=== PATIENT | male | born 1950 | race African-American/Black ===

== ENCOUNTER 2019-02-22 06:45 | Observation (INO) | payer MEDICARE, BC ==
[~2019-02-22] VITALS: Ht 175.3 cm; Wt 91.8 kg
[2019-02-22] VITALS (10 sets, daily range): BP systolic 129–169; BP diastolic 79–95
--- NOTE | ~2019-02-22 | H ---
[address] [address] HISTORY AND PHYSICAL Name: KEL ESCOBAR Room: [address] Ilia Martinez#: [id number] Admission: 02/22/19 Attend Phys: Urbano Giang MD, Discharge: 02/23/19 Date of : 52 Report #: [id number] THIS REPORT FOR: //name// Please refer to the History and Physical performed in the physician's office. By: [id number] Records Staff ERICK /LYNNETTE
[~2019-02-22 06:45] MED LIST: ASPIR 8181 MG PO; DIOVAN HCT 1601 EACH PO; EFFIENT10 MG PO; HYTRIN 5 M5 MG/1 CAP PO; NEURONTIN 300300 M1 PO; NITROGLYCERIN0.4 MG SUBLING; OMEPRAZOLE 20 M20 M1 PO; PLAVIX 75 MG TA75 M1 PO; ZOCOR40 MG PO
[2019-02-22] MEDS ORDERED: PLAVIX 75 MG TA75 M1 PO (08:13)
[2019-02-22] MEDS ORDERED: IMDUR 30 MG TAB30 M1 PO (08:13)
[2019-02-22] MEDS ORDERED: BENICAR20 MG PO (08:14)
[2019-02-22] MEDS ORDERED: HYDROCHLOROTH12.5 M1 PO (08:14)
[2019-02-22] MEDS ORDERED: FENOFIBRATE160 MG PO (08:14)
[2019-02-22] MEDS ORDERED: JARDIANCE10 MG PO (08:15)
[2019-02-22] MEDS ORDERED: LANTUS100 UNIT/M SUBQ (08:18)
[2019-02-22] MEDS ORDERED: NOVOLOG100 UNIT/1 SUBQ (08:19)
[2019-02-22 08:29] LABS: APTT 27.1 Seconds (25.0-31.3); PROTIME 10.3 Seconds (9.20-11.50)
[2019-02-22 08:39] LABS: HEMATOCRIT 41.9 % (42.0-52.0); HEMOGLOBIN 13.9 gm/dL (14.0-18.0); MCH 28.7 pg (26.0-34.0); MCHC 33.1 g/dL (28.0-37.0); MCV 86.6 fL (80.0-100.0); MPV 9.6 fl. (7.2-11.1); RBC 4.84 mil/uL (4.50-6.00); RDW-CV 14.7 % (10.5-14.5); WBC 4.3 thou/uL (4.0-11.0)
[2019-02-22 08:47] LABS: ANION GAP 10 mmol/L (7-16); BUN 26 mg/dL (7-18); CALCIUM 9.2 mg/dL (8.5-10.1); CHLORIDE 107 mmol/L (98-107); CO2 25 mmol/L (21-32); CREATININE 1.5 mg/dL (0.6-1.3); GLUCOSE 172 mg/dL (70-99); POTASSIUM 3.8 mmol/L (3.5-5.1); SODIUM 142 mmol/L (136-145)
[2019-02-22 08:55] LABS: ALKALINE PHOSPHATASE 59 U/L (46-116); CHOLESTEROL 161 mg/dL (<200); HDL CHOLESTEROL 39 mg/dL (>40); LDL CHOLESTEROL 60 mg/dL (<100); SGOT 15 U/L (15-37); SGPT 27 U/L (30-65); TC:HDL 4.1 Ratio (Not establshd); TOTAL BILIRUBIN 0.3 mg/dL (<0.1-1.0); TOTAL PROTEIN 7.7 g/dL (6.4-8.2); TRIGLYCERIDE 313 mg/dL (<150); VLDL 63 mg/dL (<40)
[2019-02-22 08:56] LABS: SERUM ASSESSMENT Clear
--- NOTE | 2019-02-22 17:04 | EKG ---
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: [facility] : 1950 Requested By: Urbano Giang Order Number: [id number] Diana MD: Jay Barnett Measurements Intervals [place] Rate: 63 P: 40 [place]: 212 QRS: 76 QRSD: 95 T: 66 QT: 437 QTc: 448 Interpretive Statements Sinus rhythm Possible left atrial enlargement Inferior Q waves noted Compared to ECG 05/02/2016 08:03:03 Prolonged QT interval no longer present Electronically Signed On 02-22-2019 17:04:42 CDT by Jay Barnett [email or web address] <ELECTRONICALLY SIGNED> By: Jay Barnett MD, [facility] 02/22/19 1704 0754 0754 Jay Barnett MD, [facility] /EPI
--- NOTE | 2019-02-22 17:08 | EKG ---
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[facility] : 1950 Requested By: Urbano Giang Order Number: [id number] Diana MD: Jay Barnett Measurements Intervals [place] Rate: 56 P: 37 [place]: 195 QRS: 85 QRSD: 100 T: 70 QT: 437 QTc: 422 Interpretive Statements Sinus rhythm Borderline right axis deviation Compared to ECG 05/02/2016 08:03:03 Myocardial infarct finding no longer present Prolonged QT interval no longer present Electronically Signed On 02-22-2019 17:08:40 CDT by Jay Barnett [email or web address] <ELECTRONICALLY SIGNED> By: Jay Barnett MD, [facility] 02/22/19 1708 1235 1235 Jay Barnett MD, [facility] /EPI
[2019-02-23] VITALS: BP 102/52
[2019-02-23 04:00] VITALS: BP 118/59
[2019-02-23 05:17] LABS: HEMATOCRIT 36.6 % (42.0-52.0); HEMOGLOBIN 12.3 gm/dL (14.0-18.0); MCHC 33.7 g/dL (28.0-37.0); MPV 9.4 fl. (7.2-11.1); RBC 4.25 mil/uL (4.50-6.00); RDW-CV 14.6 % (10.5-14.5); WBC 3.7 thou/uL (4.0-11.0)
--- NOTE | 2019-02-23 05:31 | NUR ---
VSS. SEE MAR SEE CHARTING. HOURLY ROUNDING FOR SAFETY.
[2019-02-23 05:41] LABS: ALBUMIN 3.2 g/dL (3.4-5.0); CALCIUM 8.7 mg/dL (8.5-10.1); CREATININE 1.4 mg/dL (0.6-1.3); POTASSIUM 3.9 mmol/L (3.5-5.1); TOTAL BILIRUBIN 0.4 mg/dL (<0.1-1.0); TOTAL PROTEIN 6.2 g/dL (6.4-8.2); TROPONIN-I LEVEL 0.46 ng/mL (<0.06)
[2019-02-23 07:48] VITALS: BP 137/79
[2019-02-23 08:15] VITALS: BP 136/81
[2019-02-23 11:17] VITALS: BP 115/72
--- NOTE | 2019-02-23 11:59 | NUR ---
ASSUMED CARE OF PT AROUND 0730 THIS AM. REFER TO ASSESSMENT. PT GIVEN DISCHARGE INSTRUCTIONS AT THIS TIME. VERBALIZES UNDERSTANDING. PT HAS FOLLOW UP APPOINTMENT WITH DR. COUGHLIN. NO OTHER CONCERNS AT THIS TIME. CLWR. WCTM.
--- NOTE | 2019-02-23 14:22 | CARD ---
[address] [address] CARDIAC CATH REPORT Name: KEL ESCOBAR BABAR Room: [address] Ilia Martinez#: [id number] Admission: 02/22/19 Attend Phys: Urbano Giang MD, Discharge: 02/23/19 Date of : 52 Report #: [id number] THIS REPORT FOR: //name// APPROVED REPORT Study performed: 02/22/2019 08:27:47 Patient Details Patient Status: Out-Patient Room #: The patient is a 69 year-old male Event Personnel Urbano Giang Wall Steamer, Joyce Garcia RN Electric Distribution Checker, Kb Boyce SEAM RUBBING MACHINE OPERATOR Scrub, Brittnee Suarez RTR Scrub, Lm Rico (R) Monitor Procedures Performed YONY Revasc Graft Single CIRC; left heart catheterization selective coronary arteriography aortocoronary saphenous vein bypass graft study, NGUYEN graft study Indication Unstable angina Risk Factors Obesity, Hypercholesterolemia, Hypertension, Diabetes Previous Procedures/Diagnoses Previous CABGPrevious PCI Admission/Lab Medications/Medications given during procedure Angiomax bolus and infusion Procedure Narrative The patient was brought electively to the Cardiac Catheterization Laboratory and was prepped and draped in a sterile manner. The right femoral was infiltrated with 2% Lidocaine subcutaneous anesthesia. A [place] 6 FR sheath was inserted into the right femoral artery. Coronary angiography was performed using coronary diagnostic catheters. The right coronary system was accessed and visualized with a Diagnostic AR 1 catheter. The left coronary system was accessed and visualized with a Diagnostic JL 4 catheter. Left ventricular/Aortic Valve gradient assessed via catheter pullback. Pre-demployment femoral angiogram was performed . Closure device was deployed with a 6 Fr Angioseal. The patient tolerated the [place] [address] CARDIAC CATH REPORT Name: ESCOBARKEL Room: [address]#: [id number] Admission: 02/22/19 Attend Phys: Urbano Giang MD, Discharge: 02/23/19 Date of : 52 Report #: [id number] were no complications associated with the procedure. There was no hematoma. Intraoperative Conscious Sedation Sedation start time: 9:32 Case end Time: 10:20 Fentanyl 25 mcg Versed 2 mg Fluoro Time: 13.7 minutes Dose: DAP 696899 cGycm2 1857 mGy Contrast Type and Amount: Visipaque 160 ml [place] Artery Percent Stenosis #1 widely patent NGUYEN graft to the LAD with 30% distal LAD narrowing #2 widely patent saphenous vein graft to the distal right coronary artery #3 patent saphenous vein graft to the distal circumflex with 90% mid graft in-stent restenosis Diagnostic Cath Left Main 40% distal narrowing LAD 100% mid vessel occlusion Circumflex 100% mid vessel occlusion Right Coronary Dominant vessel with 100% proximal occlusion Hemodynamics The aortic pressure is 137/69 mmHg with a mean of 95 mmHg. The left ventricular pressure is 153/1 mmHg with a mean of mmHg. The left ventricular end diastolic pressure is 12 mmHg. There was no gradient across the aortic valve upon pullback. PCI Technique Lesion Anticoagulation was achieved with Angiomax. Patient was preloaded with Angiomax IV 14 ml. Percutaneous coronary intervention was performed on the Distal 1/3 of SVG to Circ. The lesion stenosis prior to intervention was 90% with JOAN flow. A 6F JR 4.0 Guide Catheter was used to engage the ostium. A IG: BMW 190cm Interventional Guidewire was used to cross the lesion. BALLOON DILATION A Balloon catheter Trek RX 2.5 X 12 was inserted and inflated up to 10.00atm for 16seconds. Additional Inflation: 12.00[place] [address] CARDIAC CATH REPORT Name: LUZKEL BABAR Room: [address] Juan#: [id number] Admission: 02/22/19 Attend Phys: Urbano Giang MD, Discharge: 02/23/19 Date of : 52 Report #: [id number] 12seconds. STENT DEPLOYMENT A drug-eluting stent [place] RX Stent 2.88T15od was inserted and inflated up to 12.00atm for 16seconds. Additional Inflation: 14.00atm for 10seconds. Final angiography reveals 0 % stenosis with JOAN 3 flow. Conclusion #1 severe coronary artery disease characterized by the following: A 100% mid LAD occlusion B1 100% mid circumflex occlusion C1 100% proximal right coronary occlusion #2 graft study characterized by the following: A widely patent NGUYEN graft to the LAD B widely patent saphenous vein graft to the distal right coronary artery C patent saphenous vein graft to the distal circumflex with 90% mid graft in-stent restenosis to #3 normal left-sided hemodynamics study #4 successful percutaneous coronary intervention with deployment of drug-eluting stent at the site of 90% stenosis of the midportion of the saphenous vein graft to the circumflex coronary artery with 0% residual narrowing and JOAN-3 flow the distal vessel Recommendations Daily ASA with Plavix for at least one year Aggressive Medical Therapy Medications Administered Aspirin (any) [place] [address] CARDIAC CATH REPORT Name: KEL ESCOBAR BABAR Room: [address] Juan#: [id number] Admission: 02/22/19 Attend Phys: Urbano Giang MD, Discharge: 02/23/19 Date of : 52 Report #: [id number] Diagnostic Cath Approved by: Urbano Giang MD Date/Time: 02/23/2019 14:21:36 <ELECTRONICALLY SIGNED> By: Urbano Giang MD, [facility] 02/23/19 1422 1422 1422Joelijah Giang MD, FACC /INF
--- NOTE | 2019-02-23 18:34 | EKG ---
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: : 1950 Requested By: Urbano Giang Order Number: [id number] Reading MD: Jay Barnett Measurements Intervals [place] Rate: 63 P: 65 [place]: 181 QRS: 91 QRSD: 103 T: 92 QT: 430 QTc: 441 Interpretive Statements Sinus rhythm Left posterior fascicular block Borderline T wave abnormalities Compared to ECG 02/22/2019 12:35:31 Left posterior fascicular block now present T-wave abnormality now present Electronically Signed On 02-23-2019 18:34:27 CDT by Jay Barnett [email or web address] <ELECTRONICALLY SIGNED> By: Jay Barnett MD, FACC 02/23/19 1834 0836 0836 Jay Barnett MD, [facility] /EPI
--- NOTE | 2019-02-24 16:50 | D ---
[address] [address] DISCHARGE SUMMARY Name: KEL ESCOBAR BABAR Room: [address] Ilia Martinez#: [id number] Admission: 02/22/19 Attend Phys: Urbano Giang MD, Discharge: 02/23/19 Date of : 52 Report #: [id number] THIS REPORT FOR: //name// CC: Rodolfo Giang DATE OF SERVICE: 02/23/2019 FINAL DISCHARGE DIAGNOSES: 1. Unstable angina. 2. Coronary artery disease. 3. Status post remote coronary artery bypass grafting. 4. Status post percutaneous coronary intervention of the saphenous vein graft to the circumflex. 5. Type 2 diabetes. 6. Hyperlipidemia. 7. Hypertension. PROCEDURES: 02/22/2019 -- left heart catheterization, left ventriculography, selective coronary arteriography, aortocoronary saphenous vein bypass graft study, NGUYEN graft study, and percutaneous coronary intervention of the vein graft to the circumflex. The patient is a very pleasant 69-year-old male with diabetes, hypertension, and hypercholesterolemia. He is status post remote coronary artery bypass grafting and 3 years status post stenting of the vein graft to the circumflex. He presented with a pattern of dyspnea and chest discomfort typical of his prior angina following a course of clinical instability. In this context, I performed cardiac catheterization on 02/22/2019, which revealed a widely patent NGUYEN graft to the LAD, widely patent vein graft to the circumflex, a widely patent vein graft to the right coronary artery, and a patent vein graft to the circumflex with 90% mid graft in-stent restenosis. The [place] LAD, right, and circumflex were occluded. Left ventricular function was normal. Given this data, I elected to proceed with percutaneous coronary intervention, deploying one drug-eluting stent in the mid portion of the graft to the circumflex with 0% residual narrowing after deploying the Ernie drug-eluting stent in the mid portion of the graft to the circumflex with JOAN 3 flow to the distal vessel. The patient did well post-procedurally and ambulated in the hallway without difficulty. Troponin meryl inconsequentially to 0.46. Sodium was 143, potassium 3.9, BUN 23, creatinine 1.4. Hemoglobin 12.3, white blood cell count 3700 with 166,000 platelets. DISCHARGE MEDICATIONS: The patient was [place] [address] DISCHARGE SUMMARY Name: KEL ESCOBAR BABAR Room: [address]#: [id number] Admission: 02/22/19 Attend Phys: Urbano Giang MD, Discharge: 02/23/19 Date of : 52 Report #: [id number] medications: Aspirin 81 mg daily, clopidogrel 75 mg daily with a 600 mg hermann-procedural dose, fenofibrate 160 mg daily, hydrochlorothiazide 12.5 mg daily, NovoLog insulin t.i.d. and a sliding scale as used at home and Lantus in varying dose schedule as used at home, Imdur 30 mg daily, Jardiance 10 mg daily, olmesartan 20 mg daily, omeprazole 20 mg daily, simvastatin 80 mg daily, terazosin 2 mg daily, and p.r.n. sublingual nitroglycerin. The patient is scheduled to return to see me on 03/18/2019 at 0800. Thus, he is discharged to home in stable condition on the aforementioned medications with followup as iterated above. <ELECTRONICALLY SIGNED> By: Urbano Giang MD, FAC 02/24/19 1650 1301 1332Urbano Giang MD, FACC /nt
== END 2019-02-23 12:22 | disposition home or self-care (01) ==
LOC: M.CL 06:45 → M.TBA-CV 10:39 → M.2W 11:01
PROVIDERS: ADMIT Internal Medicine
DX: I25.110 Atherosclerotic heart disease of native coronary artery with unstable angina pectoris (principal); E11.9 Type 2 diabetes mellitus without complications; E78.5 Hyperlipidemia, unspecified; I10 Essential (primary) hypertension; Z79.82 Long term (current) use of aspirin; Z79.4 Long term (current) use of insulin; Z79.899 Other long term (current) drug therapy; Z95.1 Presence of aortocoronary bypass graft; Z95.5 Presence of coronary angioplasty implant and graft; Z87.891 Personal history of nicotine dependence

== ENCOUNTER 2020-11-13 09:07 | Observation (INO) | payer MEDICARE, BC ==
[~2020-11-13] VITALS: Ht 175.3 cm; Wt 93.0 kg
[2020-11-13] VITALS (17 sets, daily range): BP systolic 125–162; BP diastolic 69–101
[~2020-11-13 09:07] MED LIST changes: +BENICAR20 MG PO; +FENOFIBRATE160 MG PO; +HUMALOG100 UNIT/1 SUBQ; +HYDROCHLOROTH12.5 M1 PO; +HYTRIN 2MG CAPSU2 M1 PO; +IMDUR 30 MG TAB30 M1 PO; +JARDIANCE10 MG PO; +LANTUS100 UNIT/M SUBQ; +NOVOLOG100 UNIT/1 SUBQ; +TRULICITY1.5 MG/0.5 SUBQ
[2020-11-13 09:46] LABS: HEMATOCRIT 44.2 % (42.0-52.0); HEMOGLOBIN 14.7 gm/dL (14.0-18.0); MCH 28.5 pg (26.0-34.0); MCHC 33.4 g/dL (28.0-37.0); MCV 85.5 fL (80.0-100.0); RBC 5.17 mil/uL (4.50-6.00); RDW-CV 15.1 % (10.5-14.5); WBC 4.6 thou/uL (4.0-11.0)
[2020-11-13 09:54] LABS: CALCIUM 9.6 mg/dL (8.5-10.1); CREATININE 1.7 mg/dL (0.6-1.3); POTASSIUM 3.9 mmol/L (3.5-5.1)
[2020-11-13 09:59] LABS: ALBUMIN 4.1 g/dL (3.4-5.0); TOTAL BILIRUBIN 0.4 mg/dL (<0.1-1.0)
[2020-11-13 10:05] LABS: APTT 26.8 Seconds (25.0-31.3); PROTIME 10.8 Seconds (9.20-11.50)
--- NOTE | 2020-11-13 14:45 | EKG ---
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: [place] : 1950 Requested By: Urbano Giang Order Number: [id number] Reading MD: Urbano Giang Measurements Intervals [place] Rate: 87 P: 58 DC: 176 QRS: 122 QRSD: 80 T: 21 QT: 444 QTc: 535 Interpretive Statements Sinus rhythm Left posterior fascicular block Borderline T abnormalities, anterior leads Prolonged QT interval Compared to ECG 02/23/2019 08:36:16 Prolonged QT interval now present T-wave abnormality still present Electronically Signed On 11-13-2020 14:45:43 CDT by Urbano Giang [email or web address] <ELECTRONICALLY SIGNED> By: Urbano Giang MD, [facility] 11/13/20 1445 0933 0933 Urbano iGang MD, FAC /EPI
--- NOTE | 2020-11-13 14:46 | EKG ---
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: [place] : 1950 Requested By: Urbano Giang Order Number: [id number] Reading MD: Urbano Giang Measurements Intervals [place] Rate: 71 P: 47 [place]: 192 QRS: 76 QRSD: 94 T: 43 QT: 455 QTc: 495 Interpretive Statements Sinus rhythm Borderline T abnormalities, anterior leads Borderline prolonged QT interval Compared to ECG 11/13/2020 09:33:27 Left posterior fascicular block no longer present T-wave abnormality still present Electronically Signed On 11-13-2020 14:45:51 CDT by Urbano Giang [email or web address] <ELECTRONICALLY SIGNED> By: Urbano Giang MD, FAC 11/13/20 1445 1242 1242 Urbano Giang MD, FAC /EPI
--- NOTE | 2020-11-13 18:27 | CARD ---
[address] [address] CARDIAC CATH REPORT Name: KEL ESCOBAR Room: [address] M.R.#: [id number] Admission: 11/13/20 Attend Phys: Urbano Giang MD, Discharge: Date of : 52 Report #: [id number] THIS REPORT FOR: cc: Rodolfo Ames MD, David A. MD Holkins, John M. MD [facility] ~ APPROVED REPORT Study performed: 11/13/2020 09:36:06 Patient Details Patient Status: Out-Patient Room #: The patient is a 70 year-old male Event Personnel Urbano Giang Windows Deployment Technician, Jennie Nolen RN RN, Brenden Casiano RTR Scrub, Brittnee Suarez RTR Monitor Procedures Performed Art Access - R femoral artery YONY Place w/wo Plasty Single CIRC YONY Revasc Graft Single CIRC Left Heart Cath Coronaries, Bypass Grafts Hemostasis w/ Angioseal Indication Unstable angina , Positive stress test Risk Factors Obesity, Hypercholesterolemia, Hypertension, Diabetes Previous Procedures/Diagnoses Previous CABGPrevious PCI Admission/Lab Medications/Medications given during procedure Fentanyl IV 25 mcg, Midazolam (Versed) IV 2 mg, Lidocaine Subcut 14 ml, Oxygen Nasal cannula 2 l per min, 0.9% Sodium Chloride IV 75 ml per hr, 0.9% Sodium Chloride IV 150 ml per hr, Angiomax IV 14 ml, Angiomax Drip IV 32.55 ml per hr, Aspirin PO 162 mg, Plavix PO 600 mg Procedure Narrative The patient was brought electively to the Cardiac Catheterization Laboratory and was prepped and draped in a sterile manner. The right femoral was infiltrated with 2% Lidocaine subcutaneous anesthesia. A [place] 5fr sheath was inserted into [place] [address] CARDIAC CATH REPORT Name: KEL ESCOBAR JULIAN Room: [address] MThaoR.#: [id number] Admission: 11/13/20 Attend Phys: Urbano Giang MD, Discharge: Date of : 52 Report #: [id number] Coronary angiography was performed using coronary diagnostic catheters. The right coronary system was accessed and visualized with a Diagnostic JR4 6Fr catheter. The left coronary system was accessed and visualized with a Diagnostic JL4 6Fr catheter. The left ventricle was accessed and visualized with a Diagnostic [place] 6Fr catheter. Left ventricular/Aortic Valve gradient assessed via catheter pullback. Left ventriculogram was performed in SANTIAGO projection. Pre-demployment femoral angiogram was performed . Closure device was deployed with a 6 Fr Angioseal. The patient tolerated the procedure well and there were no complications associated with the procedure. There was no hematoma. Intraoperative Conscious Sedation Sedation start time: 1019 Case end Time: 1137 Fentanyl 25 mcg Versed 2 mg Fluoro Time: 19.0 minutes Dose: DAP 872314 cGycm2 3009 mGy Contrast Type and Amount: Visipaque 290 ml [place] Artery Percent Stenosis 1. Widely patent NGUYEN graft to the LAD with 30% distal LAD narrowing 2. Widely patent saphenous vein graft to the distal right coronary artery with 30% mid graft narrowing 3. Patent saphenous vein graft to 2 marginal branches of the circumflex with 40% mid graft narrowing and 90% distal stenosis within a previously deployed stent Diagnostic Cath Left Main 30% distal narrowing LAD 100% mid vessel occlusion Circumflex 40% proximal narrowing with 90% mid vessel stenosis and total occlusion of the marginal system Right Coronary 100% proximal occlusion Left Ventriculography The left ventricle is normal in size with normal contractility. The left ventricular ejection fraction is estimated to be 70%. Left ventricular wall motion abnormalities are not present. There [place] [address] CARDIAC CATH REPORT Name: KEL ESCOBAR BABAR Room: [address]#: [id number] Admission: 11/13/20 Attend Phys: Urbano Giang MD, Discharge: Date of : 52 Report #: [id number] Hemodynamics The aortic pressure is 142/72 mmHg with a mean of 74 mmHg. The left ventricular pressure is 136/-7 mmHg with a mean of mmHg. The left ventricular end diastolic pressure is 5 mmHg. There was no gradient across the aortic valve upon pullback. PCI Technique Lesion Anticoagulation was achieved with Angiomax. Percutaneous coronary intervention was performed on the Distal 1/3 of the saphenous vein graft to the circumflex. The lesion stenosis prior to intervention was 90% with JOAN 3 flow. A 6F JR 4.0 Guide Catheter was used to engage the Left SVG ostium. A IG: BMW 190cm Interventional Guidewire was used to cross the lesion. BALLOON DILATION A Balloon catheter [place] Trek RX 2.5 X 12 was inserted and inflated up to 14.00atm for 13seconds. Additional Inflation: 15.00atm for 9seconds. STENT DEPLOYMENT A drug-eluting stent Ernie RX Stent 2.5X12mm was inserted and inflated up to 12.00atm for 8seconds. Additional Inflation: 14.00atm for 8seconds. Final angiography reveals 0 % stenosis with JOAN 3 flow. PCI Technique Lesion 2 Percutaneous Coronary Intervention was performed on the mid circumflex artery segment. The lesion stenosis prior to intervention was 90% with JOAN 3 flow. A 6F XB LAD 3.5 Guide Catheter was used to engage the Left ostium. A IG: ProwaterFlex 180CM Interventional Guidewire was used to cross the lesion. Balloon Dilation A Balloon catheter Mini Trek RX 1.5 X 8 was inserted and inflated up to 17.00atm for 13seconds. A Balloon Catheter EA NC Trek 2.0 X 8mm was inserted and inflated up to 10.00 luanne for 11 seconds. Additional Inflation: 12.00 luanne for 8 seconds. Stent Deployment A drug-eluting stent Ernie RX Stent 2.0X8mm was inserted and inflated up to 8.00atm for 7seconds. Additional Inflation: 10.00atm for 9seconds. Final angiography reveals 10 % stenosis with JOAN [address] [address] CARDIAC CATH REPORT Name: KEL ESCOBAR Room: [address] Juan#: [id number] Admission: 11/13/20 Attend Phys: Urbano Giang MD, Discharge: Date of : 52 Report #: [id number] flow. Conclusion 1. Severe coronary artey disease characterized by the following: A 30% distal left main coronary B1 100% mid LAD occlusion C 40% proximal with 90% calcified mid circumflex stenosis with total occlusion of the marginal system D total proximal right coronary occlusion 2. Graft study characterized by the following: A widely patent NGUYEN graft the LAD with 30% distal LAD narrowing B widely patent saphenous vein graft to the distal right coronary artery with 30% mid graft narrowing C patent saphenous vein graft to 2 marginal branch of the circumflex with 40% mid graft narrowing and 90% distal graft in-stent restenosis 3. Hyperdynamic left ventricular systolic function, estimated ejection fraction is 70% 4. Successful PCI with deployment of a drug-eluting stent at the site of 90% distal graft stenosis in the SVG to the circumflex with 0% residual narrowing and JOAN-3 flow the distal vessel 5. Successful PCI with deployment of drug-eluting stent at the site of 90% calcified mid circumflex stenosis with 10% residual narrowing and JOAN-3 flow to the distal vessel Recommendations Aggressive Medical Therapy Medications Administered Aspirin (any) Clopidogrel [address] [address] CARDIAC CATH REPORT Name: KEL ESCOBAR Room: [facility] ADM Ilia M.R.#: [id number] Admission: 11/13/20 Attend Phys: Urbano Giang MD, Discharge: Date of : 52 Report #: [id number] Diagnostic Cath Approved by: Urbano Giang MD Date/Time: 11/13/2020 18:24:22 <ELECTRONICALLY SIGNED> By: Urbano Giang MD, FACC 11/13/201826 26 26Urbano Giang MD, FACC /INF
[2020-11-14 00:50] VITALS: BP 137/73
[2020-11-14 04:39] LABS: HEMATOCRIT 37.4 % (42.0-52.0); MCH 27.9 pg (26.0-34.0); MCHC 32.7 g/dL (28.0-37.0); MCV 85.2 fL (80.0-100.0); RBC 4.39 mil/uL (4.50-6.00); RDW-CV 15.1 % (10.5-14.5); WBC 3.2 thou/uL (4.0-11.0)
[2020-11-14 04:56] LABS: HEMOGLOBIN 12.2 gm/dL (14.0-18.0)
[2020-11-14 04:58] LABS: ALKALINE PHOSPHATASE 71 U/L (46-116); ANION GAP 11 mmol/L (7-16); BUN 26 mg/dL (7-18); CALCIUM 8.7 mg/dL (8.5-10.1); CHLORIDE 105 mmol/L (98-107); CHOLESTEROL 139 mg/dL (<200); CO2 22 mmol/L (21-32); CREATININE 1.5 mg/dL (0.6-1.3); GLUCOSE 301 mg/dL (70-99); HDL CHOLESTEROL 32 mg/dL (>40); POTASSIUM 3.7 mmol/L (3.5-5.1); SGOT 6 U/L (15-37); SGPT 19 U/L (30-65); SODIUM 138 mmol/L (136-145); TC:HDL 4.3 Ratio (Not establshd); TOTAL BILIRUBIN 0.2 mg/dL (<0.1-1.0); TOTAL PROTEIN 6.2 g/dL (6.4-8.2); TRIGLYCERIDE 449 mg/dL (<150); TROPONIN-I LEVEL 0.34 ng/mL (<0.06); VLDL 90 mg/dL (<40)
[2020-11-14 05:01] LABS: LDL CHOLESTEROL ND mg/dL (<100); SERUM ASSESSMENT Clear
[2020-11-14 05:49] VITALS: BP 139/76
--- NOTE | 2020-11-14 07:26 | NUR ---
ASSUMED CARE OF PT AFTER REPORT AT 1930. PT A&OX4. VSS. PHYSICAL ASSESSMENT COMPLETED AND CHARTED. PT ON RA. PT TRACING SR ON TELE. PT UPSTANDBY. PT COMPLAINED OF BACK PAIN-MED GIVEN PER MAR. POST CATH SITE TO RIGHT GROIN CLEAN, DRY & INTACT. CALL LIGHT WITHIN REACH.
[2020-11-14 08:00] VITALS: BP 125/64
[2020-11-14 11:06] VITALS: BP 148/78
--- NOTE | 2020-11-14 11:36 | D ---
[address] [address] DISCHARGE SUMMARY Name: KEL ESCOBAR Room: [address] M.R.#: [id number] Admission: 11/13/20 Attend Phys: Urbano Giang MD, Discharge: Date of : 52 Report #: [id number] THIS REPORT FOR: cc: Rodolfo Ames MD, David A. MD Holkins,Urbano Contreras MD [facility] ~ DATE OF SERVICE: 11/14/2020 DISPOSITION: Discharged to home. FINAL DISCHARGE DIAGNOSES: 1. Abnormal nuclear stress test. 2. Unstable angina. 3. Coronary artery disease. 4. Diabetes mellitus. 5. Hyperlipidemia. 6. Hypertension. 7. Exogenous obesity. PROCEDURES: 11/13/2020 -- left heart catheterization, left ventriculography, selective coronary arteriography, graft study, and percutaneous coronary intervention with stenting of the vein graft to the circumflex and ____ circumflex itself. HOSPITAL COURSE: The patient is a pleasant 70-year-old male with complex coronary artery disease, status post remote coronary artery bypass grafting and subsequent PCIs. Recently, he has noted that chest discomfort with moderate exertion and nuclear stress test demonstrated a large induced lateral defect. In this context, I performed cardiac catheterization on 11/13/2020. That study revealed 90% stenosis in the vein graft to the circumflex with a 90% stenosis in the mid circumflex with no graft to that portion of the circumflex system. There was a widely patent NGUYEN graft to the LAD and widely patent vein graft to the distal right coronary artery. The council LAD and right coronary artery are totally occluded. In this context, I performed a percutaneous coronary intervention, deploying one 2.5 x 12 mm [place] drug-eluting stent in the distal portion of the vein graft to the circumflex and one 2.0 x 8 mm [place] drug-eluting stent in the mid portion of the council circumflex with 0% residual narrowing at both sites following stent deployment and JOAN 3 flow of the distal vessels. The patient did well post-procedurally. Troponin meryl inconsequentially to 0.34. Additional lab revealed sodium 138, potassium 3.7; BUN 26, down from 28; creatinine 1.5, down from 1.7; glucose 301. White blood cell count 3200, hemoglobin 12.2, hematocrit 37.4, platelets 145,000. [place] [address] DISCHARGE SUMMARY Name: KEL ESCOBAR BABAR Room: [address]#: [id number] Admission: 11/13/20 Attend Phys: Urbano Giang MD, Discharge: Date of : 52 Report #: [id number] He ambulated in the hallways without difficulty and there was good hemostasis at the right femoral site of catheterization. DISCHARGE MEDICATIONS: He was discharged to home on the following medications: Aspirin 81 mg daily, simvastatin 80 mg at bedtime, omeprazole 20 mg daily, Imdur 30 mg daily, Plavix 75 mg daily, Benicar 20 mg daily, hydrochlorothiazide 12.5 mg daily, fenofibrate 160 mg daily, Jardiance 10 mg daily, Lantus insulin 40 units subcutaneously at bedtime, Trulicity varying dose schedule, Humalog insulin 15 units subcutaneously before meals, terazosin 2 mg at bedtime. I will plan to see the patient in followup in 4-6 weeks for his continuing care. Therefore, the patient is discharged to home in stable condition with followup on 12/14/2020. Medicines are as described above. He is stable at the time of discharge. <ELECTRONICALLY SIGNED> By: Urbano Giang MD, FACC 11/14/20 1136 [id number] Giang MD, FACC /nt
--- NOTE | 2020-11-14 11:42 | NUR ---
CM COMPLETED THE INITIAL ASSESSMENT. PT AAOX4. PT LIVES HOME WITH . PT IS INDEPENDENT W/CARES. PT DRIVES A VEHCILE. PT DENIES HX WITH HH OR SNF. PT HAS 0 DMES. THERE ARE NO ANTICIPATED DC NEEDS.
--- NOTE | 2020-11-14 14:20 | EKG ---
[place] [address] ELECTROCARDIOGRAM REPORT Name: LUZKEL Room: [address] M.R.#: [id number] Admission: 11/13/20 Attend Phys: Mary Guillory Discharge: 11/14/20 Date of : 52 Date of Service: 11/14/20 0649 Report #: [id number] THIS REPORT FOR: //name// [facility] Test Date: 2020-11-14 Test Time: 06:49:42 Pat Name: KEL ESCOBAR Department: Room: [facility] Gender: M [employer]: TEJAL : 1950 Requested By: Urbano Giang Order Number: [id number] Reading MD: Jay Barnett Measurements Intervals [place] Rate: 59 P: 47 MD: 186 QRS: 85 QRSD: 86 T: 108 QT: 420 QTc: 416 Interpretive Statements Sinus rhythm Borderline right axis deviation Inferior infarct, old, possible Low voltage, precordial leads Nonspecific T abnrm, anterolateral leads Compared to ECG 11/13/2020 12:42:15 Low QRS voltage now present T-wave abnormality no longer present Electronically Signed On 11-14-2020 14:20:41 CDT by Jay Barnett [email or web address] <ELECTRONICALLY SIGNED> By: Jay Barnett MD, [facility] 11/14/20 1420 0649 0649 Jay Barnett MD, [facility] /EPI
--- NOTE | 2020-11-15 13:06 | NUR ---
Cardiac Rehab. Copy of part of patient's chart faxed to [facility].
== END 2020-11-14 11:40 | disposition home or self-care (01) ==
LOC: M.CL 09:07 → M.TBA-CV 11:14 → M.2W 11:14
PROVIDERS: ADMIT Internal Medicine; ATTEND Internal Medicine
DX: I25.110 Atherosclerotic heart disease of native coronary artery with unstable angina pectoris (principal); I10 Essential (primary) hypertension; E11.9 Type 2 diabetes mellitus without complications; E78.5 Hyperlipidemia, unspecified; E66.09 Other obesity due to excess calories; Z68.30 Body mass index [BMI] 30.0-30.9, adult; Z79.82 Long term (current) use of aspirin; Z79.01 Long term (current) use of anticoagulants; Z79.4 Long term (current) use of insulin; Z79.899 Other long term (current) drug therapy